=== PATIENT | male | born 1980 | race Caucasian/White ===

== ENCOUNTER 2021-06-22 11:58 | Emergency (ER) | payer MEDICAID ==
[~2021-06-22] VITALS: Ht 175.3 cm; Wt 72.7 kg
[2021-06-22 13:38] VITALS: BP 136/101
== END 2021-06-22 13:53 ==
LOC: ER 12:02
DX: Z02.89 Encounter for other administrative examinations (principal); Z04.1 Encounter for examination and observation following transport accident; Z88.2 Allergy status to sulfonamides; V89.2XXA Person injured in unspecified motor-vehicle accident, traffic, initial encounter; Y93.89 Activity, other specified; Y92.89 Other specified places as the place of occurrence of the external cause; Y99.8 Other external cause status
CPT/HCPCS: 70450; 72125; 99285